=== PATIENT | female | born 1965 | race Caucasian/White ===

== ENCOUNTER 2022-06-17 05:10 | Emergency (ER) | payer OTHER ==
[~2022-06-17] VITALS: Ht 170.2 cm; Wt 66.0 kg
[2022-06-17 05:12] VITALS: BP 125/72
[2022-06-17] MEDS ORDERED: ACETAMINOPHEN 325MG TABLET PO ONE (06:00)
[2022-06-17] MEDS ORDERED: TOPUD PO (07:14)
== END 2022-06-17 07:39 | disposition home or self-care (01) ==
LOC: ER 05:15
DX: S05.11XA Contusion of eyeball and orbital tissues, right eye, initial encounter (principal); S00.83XA Contusion of other part of head, initial encounter; Y07.59 Other non-family member, perpetrator of maltreatment and neglect; Y04.2XXA Assault by strike against or bumped into by another person, initial encounter; Y93.89 Activity, other specified; Y92.89 Other specified places as the place of occurrence of the external cause
CPT/HCPCS: 70486; 99284

== ENCOUNTER 2023-07-15 11:56 | Emergency (ER) | payer OTHER ==
[~2023-07-15] VITALS: Ht 147.3 cm; Wt 50.0 kg
[~2023-07-15 11:56] MED LIST: TOPUD PO
[2023-07-15 11:57] VITALS: BP 103/63; PULSE 83; RESP 16; TEMP 98; O2SAT 99
== END 2023-07-15 12:54 | disposition home or self-care (01) ==
LOC: ER 12:17
DX: R68.89 Other general symptoms and signs (principal)
CPT/HCPCS: 99283